=== PATIENT | male | born 1975 | race Caucasian/White ===

== ENCOUNTER 2017-04-26 05:37 | Day surgery (SDC) | payer OTHER ==
[2017-04-26] VITALS (8 sets, daily range): BP systolic 146–178; BP diastolic 47–98; PULSE 55–85; RESP 10–18; O2SAT 94–99
[~2017-04-26] VITALS: Ht 177.8 cm; Wt 124.3 kg
[~2017-04-26 05:37] MED LIST: MELO-259 PO
[2017-04-26] MEDS ORDERED: Propofol 10,000 mCg/mL 20 mL Inj ONE (05:38)
[2017-04-26] MEDS ORDERED: Dexamethasone 4 mg/mL Inj ONE (05:38)
[2017-04-26] MEDS ORDERED: EPHEDrine/NS 5 mg/mL 5 mL Syringe ONE (05:38)
[2017-04-26] MEDS ORDERED: MetoCLOpramide 5 mg/mL 2 mL Inj ONE (05:38)
[2017-04-26] MEDS ORDERED: Ondansetron 2 mg/mL 2 mL Inj ONE (05:38)
[2017-04-26] MEDS ORDERED: fentaNYL-PF 50 mCg/mL 2 mL Inj ONE (05:38)
[2017-04-26] MEDS ORDERED: Rocuronium 10 mg/mL 5 mL Inj ONE (05:38)
[2017-04-26] MEDS: Lactated Ringer's 1,000 ML IV SCH ×2 (05:49→07:25)
[2017-04-26] MEDS ORDERED: Clindamycin 900 mg/50 mL D5W IV ONE (06:00)
[2017-04-26] MEDS ORDERED: Lactated Ringer's 1,000 ML IV SCH ×2 (06:00→07:40)
[2017-04-26] MEDS ORDERED: Atropine 0.4 mg/mL Inj IVPUSH PRN (07:40)
[2017-04-26] MEDS ORDERED: Lactated Ringer's 500 ML IV PRN (07:40)
[2017-04-26] MEDS ORDERED: Ondansetron 2 mg/mL 2 mL Inj IVPUSH PRN (07:40)
[2017-04-26] MEDS ORDERED: EPHEDrine Sulfate 50 mg/mL Inj IVPUSH PRN (07:40)
[2017-04-26] MEDS ORDERED: MetoCLOpramide 5 mg/mL 2 mL Inj IVPUSH PRN (07:40)
[2017-04-26] MEDS ORDERED: Labetalol 5 mg/mL 4 mL Inj IV PRN (07:40)
[2017-04-26] MEDS ORDERED: Phenylephrine 10,000 mCg/mL Inj IVPUSH PRN (07:40)
[2017-04-26] MEDS ORDERED: HYDROmorphone 1 mg/mL Inj IVPUSH PRN (07:40)
--- NOTE | 2017-04-26 07:47 | PCM.HPANE ---
Patient Data Surgeon Admitting Provider: Attending Provider:Gregory Branch MD Primary Care Physician:Abbey Other Provider:Tamie Saul Anesthesia Reason for Visit Left Distal Biceps Rupture Ht/WT & BMI Height (Feet): 5 Height (Inches): 10.00 Weight (Kilograms): 124.3 Body Mass Index 39.00 Allergies Coded Allergies: Penicillins (Verified Allergy, Unknown, hives, 04/24/17) Past Anesthesia History Anesthesia History: Denies:: Abnormal Airway, Anesthesia Reactions (no prior surgery), Difficult Intubation, Fam Anesthesia Reaction, Fam Malignant Hypertherm, Malignant Hyperthermia Diabetes History Hx Diabetes?: No MRSA MRSA: No Medications Hypertension Medication: No Home Meds Incl Beta Rick: No Reported Medications Meloxicam 7.5 Mg Tablet7.5 Mg PO BID 30 Days Ref 0 04/24/17 History History of ENT Problems?: No HEENT History: Denies:: Abnormal Airway Cataracts Difficult Intubation Dysphagia Glaucoma Hearing Problem Sinus Problem TMJ Denture Type: None Teeth Condition: Broken Teeth Hx of Heart Problems?: No Cardiovascular History: Denies:: AICD Abdominal Aortic Aneurism Atrial Fibrillation Cardiac Surgery Chest Pain Congestive Heart Failure Coronary Artery Disease Edema Heart Murmur Hypertension Irregular Heartbeat Pacemaker Peripheral Vascular Rheumatic Fever Thrombophlebitis Valvular Heart Disease Hx of Respiratory Problem?: No Respiratory History: Denies:: Asthma COPD Chest Surgery Cough Dyspnea Emphysema Hemoptysis Oxygen Administration Pneumonia Pulmonary Embolism Tuberculosis Use of C-PAP Machine Use of Inhalers / NEBS Hx Neurologic Problems?: No Neurological History: Denies:: Alzheimer's Disease CVA Dementia Dizziness Headaches Multiple Sclerosis Parkinson's Disease Peripheral Neuropathy Seizures TIA Hx of GI Problems?: No Gastrointestinal History: Denies:: Cirrhosis Diverticulitis Gall Bladder Disease Gastroesphageal Reflux Gastrointestinal Bleeding Heartburn Hepatitis Hiatal Hernia Liver Disease Rectal Bleeding Hx of Problems?: No Genitourinary History: Denies:: HX of Hemodialysis Kidney Stones Urinary Tract Infection HX of Peritoneal Dialysis: No Male Hx: Denies:: Prostate Problems Scrotal Mass Testicular Surgery Skin History: Denies:: History Skin Disorders? Pressure Ulcers Hx Musculoskeletal Problems?: Yes Musculoskeletal History: Positive for:: Musculoskeletal Trauma (left distal biceps rupture current admission problem) Denies:: Back Injury Degenerative Joint Fibromyalgia Joint Replacement Myasthenia Gravis Osteoarthritis Rheumatoid Arthritis Systemic Lupus Hx of Psycho/Social Problems?: No Psycho Social History: Denies:: Anxiety Bipolar Disorder Hx Depression Suicide Attempt Hx Surgeries?: No (no prior surgery) Hx Any Other Health Problems?: Yes Other History: Denies:: Cancer Endocrine Disease Hospitalization Thyroid Disease History Blood Transfusions: Positive for:: Accept Blood Products? Denies:: Blood Transfuse Reaction Blood Transfusions Hx Diabetes: No Hx Alcohol Use: YesAlcoholic Drinks Per Day: weekends - 2-3 drinksHx Substance Use: NoHave You Smoked inLast 12 mo: No Stop/Bang S-Snoring: Do You Snore Loudly: No T-Tired: feel tired, fatigued: No O-Obsered: Observed not breath: No P-Blood Pressure: treated: No B- Body Mass Index > 35 kg/m2: Yes A- Age over 50: No N- Neck Large Circumference: Yes G- Gender Male: Yes TOI Total Score: 3 Risk Assessment Category Category 1A: Patient has history of documented sleep apnea, and HAS NOT received any narcotic, sedative or anesthesia administration during this stay. Category 1B: Patient has history of documented sleep apnea, and HAS received any narcotic , sedative or anesthesia administration during this stay Category 2: Patient has SUSPECTED Obstructive Sleep Apnea, and HAS received any narcotic , sedative or anesthesia administration during this stay. Category 3: Patient has SUSPECTED Obstructive Sleep Apnea and HAS NOT received narcotic, sedative or anesthesia administration during this stay. Category 4: Outpatient in Procedural Areas with known sleep apnea or who screen positive for High Risk via the STOP/BANG questionnaire. Exam Exam Vital Signs Vital Signs Date Time Temp Pulse Resp B/P Pulse Ox O2 Delivery O2 Flow Rate FiO2 04/26/17 06:26 36.0 56 18 146/85 96 Room Air General Appearance: Alert, Oriented X3, Cooperative, No Acute Distress HEENT/AIRWAY: MP 2, Neck Movement (FROM, large neck circumference), Mouth Opening (3 FBMO) Lungs: Clear to Auscultation, Normal Air Movement Heart: Exam Unremarkable, Regular Rate/Rhythm, No Murmurs/Rubs/Gallops Meds/Labs/Diagnostics Admission Meds Current Medications Lactated Ringer's (Lr) 1,000 ml @ 120 mls/hr [id number] IV Last administered on t 05:49; Start 04/26/17 at 05:00; Stop 04/26/17 at 13:19 Plan Impression Patient chart reviewed, patient interviewed and anesthestic plan with risks, benefits, and alternatives discussed, and informed consent obtained. NPO per Anesth. Guidelines: Yes ASA Physical Status: ASA2 Mod Systemic Disease Anesthetic Plan: GA, Regional Block (Postoperative rescue supraclavicular block consented for, if needed. Risks discussed including bleeding, infection, permanent nerve damage, stroke, pneumothorax. AQA. Consent signed.) Bene/Risks/Altern/Consents: Yes HP Complete Prior to Induction: Yes Ramone Garcia MD Apr 26, 2017 06:58
[2017-04-26] MEDS ORDERED: Ropivacaine-PF 0.5% 30 mL Inj INJ ONE (08:01)
[2017-04-26] MEDS: fentaNYL-PF 50 mCg/mL 2 mL Inj IVPUSH PRN ×2 (09:37→09:42)
[2017-04-26] MEDS ORDERED: Ketorolac 15 mg/mL Inj IVPUSH ONE (09:40)
[2017-04-26] MEDS ORDERED: HYDROcodone-APAP 5-325 mg Tablet PO PRN (09:40)
--- NOTE | 2017-04-26 09:47 | PCM.ORTHOP ---
Orthopedic Operative Report Date of Service: Apr 26, 2017 Pre Operative Diagnosis Left distal biceps rupture Post Operative Diagnosis left distal biceps rupture Procedure left distal biceps rupture Surgeon Surgeon: Gregory Branch MD Assistants: None Indication for Procedure Left distal biceps repair Findings Per dictation Details of Procedure Operative Indications: Kermit Gerardo is a 41-year-old right hand dominant who presents with a left distal biceps rupture from March 2017 A clear explanation was given to the patient regarding the condition, the conservative and surgical options. It was emphasized that the risks and benefits of surgery include but are not limited to infection, wound healing problems, damage to adjacent structures such as nerves, blood vessels and tendons, custodial disability and pain, arthritis, hypersensitivity, deep vein thrombosis, pulmonary embolism and loss of limb or life. The likely post operative recovery and the instructions that are to be followed after surgery were also discussed and explained. The patient was invited to ask questions or seek clarification but there were none. The patient voiced understanding of the entire discussion and requested to move forward. Procedure: Kermit Gerardo was seen in preoperative holding and the left side was reconfirmed and marked as the correct side. The patient was taken to the OR and transferred to the OR table without incident. A time-out was performed reconfirming the patients identity, laterality of surgery and proper administration of preoperative antibiotics. After the examination the extremity was prepped and draped in a sterile fashion with 2% Clorhexadine solution. A sterile tourniquet was applied. The incision was clearly marked out. We paused to reconfirm the procedure and laterality one last time. Incision was made with a #15 blade and subsequent sharp dissection was performed with aid of electrocautery to control the bleeding down to the level of the fascia. Appropriate full thickness skin flaps were subsequently developed. There was notable disruption of distal biceps from the trauma. The interval between the BR and pronator teres was identified and developed down to the level of the joint capsule. The lateral antebrachial cutaneous nerve was identified and retracted. Recurrent veins were isolated and coagulated with a bipolar electrocautery. The forearm was fully supinated and the area vacated by the ruptured biceps was identified. Using blunt disection and the bipolar the radial tuberosity was exposed until there was good visualization. At this time the biceps tendon was palpated retracted into the upper arm and was delivered out of the wound. The tendon's overall condition was good. The very end was debrided and then whipstitched in a grasping fashion with a Fiberloop. The allowed for a good grasping stitch. Provisionally it appeared that the tendon could be reduced down to the level of the radial tuberosity. The tuberosity was then debrided and a guidepin was placed slightly distal to the exact center of the insertion point. This was checked with Fluoro to ensure correct placement. The near cortex was then reamed with a 8mm reamer. The reduction was secure and ROM was checked demonstrated that the biceps was not under too much tension. A interference screw was size 8. The tourniquet was let down and bleeding was controlled. The wound was irrigated copiously with sterile saline solution. Subcutaneous closure was achieved with 2-0 vicryl followed by vertical mattress 3-0 nylon suture. Steri strips were then applied. The wound was then dressed in a sterile fashion and a posterior splint was applied. The patient was awoken gently from anesthesia and transferred to the PACU in stable condition. Please keep dressing clean dry and intact. Do not remove dressing until follow- up in clinic. Do not weight-bear on the affected extremity. You will follow up in clinic in 10-14 days for suture removal, and placement of new Steri- Strips. You will follow-up with me in clinic without x-rays at this time. You will follow-up with me at 6 weeks postop and may start weightbearing as tolerated at 6-8 weeks. depending on your motion and pain level. Please keep the affected extremity elevated when possible. You may use ice and/or heat as needed for comfort (preferably ice during the first 48-72 hours. Please feel free to call with any further questions, comments, and/or concerns. You have been given medications for pain, medication for possible constipation which is a side affect of the pain medications. Grafts, Implants: Implants-See Implant Record Complications There were no periprocedural complications identified. Condition Stable Anesthetic Administered: GA Catheters: None Output, Estimated Blood Loss: 15 Blood Admin during surgery: No Surgical Cast or Splint: Long Arm Splint Surgical Specimen Removed: No Specimen sent to Pathology: No copies to: Gregory Branch MD, Christopher L MD Apr 26, 2017 09:46
[2017-04-26] MEDS ORDERED: HYDROcodone-APAP 5-325 mg Tablet PO ONE ×2 (10:25→11:30)
--- NOTE | 2017-04-26 13:50 | PCM.ANEP1 ---
Post Anesthesia PACU Phase 1 Assessment Vital Signs Vital Signs Date Time Temp Pulse Resp B/P Pulse Ox O2 Delivery O2 Flow Rate FiO2 04/26/17 10:08 36.4 85 14 157/84 95 Room Air 04/26/17 09:59 36.1 67 12 168/98 97 Room Air 04/26/17 09:50 55 10 167/47 94 Room Air 04/26/17 09:35 36.1 64 10 157/71 95 Room Air 04/26/17 09:30 65 12 178/91 97 Room Air 04/26/17 09:25 65 12 170/68 99 Simple Mask 9 04/26/17 09:20 36.0 63 14 173/91 99 Simple Mask 9 04/26/17 06:26 36.0 56 18 146/85 96 Room Air Anesthetic Administered: GA Level of Alertness: Awake, talking MARSHALL's with Equal Strength: Yes Pain: Yes (significant pain requiring postoperative rescue arm block) Nausea or Vomiting: No CV Function & Hydration Stable: No Airway Device: n/a Oxygen Delivery: Room Air Lungs: Clear to Auscultation, Normal Air Movement Dermatome Level: Full Sensation PACU Phase 2 Assessment Complications: No Follow up Care: N/A Patient Instructions Provided: N/A Ramone Garcia MD Apr 26, 2017 13:50
== END 2017-04-26 23:59 | disposition home or self-care (01) ==
LOC: SAS 05:37
PROVIDERS: ATTEND Orthopaedic Surgery
DX: S46.212A Strain of muscle, fascia and tendon of other parts of biceps, left arm, initial encounter (principal); X50.0XXA Overexertion from strenuous movement or load, initial encounter; Y93.89 Activity, other specified; Y92.69 Other specified industrial and construction area as the place of occurrence of the external cause; Y99.0 Civilian activity done for income or pay
CPT/HCPCS: 24342; 76000; C1713; J1100; J1885; J2250; J2270; J2405; J2765; J2795; J3010; J7120